=== PATIENT | male | born 1965 | race Hispanic/Latino ===

== ENCOUNTER 2016-08-24 03:50 | Emergency (ER) | payer MEDICARE ==
[2016-08-24 05:50] LABS: Basophils % (Auto) 1.2 % (0.0-1.8); Eosinophils % (Auto) 3.5 % (0.0-4.3); Hematocrit 43.8 % (35.5-45.6); Hemoglobin 14.5 gm/dl (11.8-15.2); Mean Corpuscular HGB Conc 33 % (32-34); Mean Corpuscular Hemoglobin 28 pg (28-32); Mean Corpuscular Volume 86 fl (84-94); Platelet Count 264 K/mm3 (140-440); Red Blood Count 5.11 M/mm3 (3.65-5.03); Red Cell Distribution Width 15.7 % (13.2-15.2); White Blood Count 8.2 K/mm3 (4.5-11.0)
[2016-08-24 06:08] LABS: BUN/Creatinine Ratio 10.83; Blood Urea Nitrogen 13 mg/dL (9-20); Calcium 9.1 mg/dL (8.4-10.2); Carbon Dioxide 27 mmol/L (22-30); Chloride 97.1 mmol/L (98-107); Glucose 172 mg/dL (75-100); Potassium 4.8 mmol/L (3.6-5.0); Sodium 135 mmol/L (137-145)
[2016-08-24 06:11] LABS: Anion Gap 16 mmol/L
--- NOTE | 2016-08-24 08:26 | XRay Report ---
Chest 2 views. Findings: The heart is enlarged with normal pulmonary vascularity. The lungs are clear. There is no pleural fluid. Impression: Cardiomegaly with no acute findings.
--- NOTE | 2016-08-24 09:56 | Emergency Department Report ---
Chief Complaint: Dyspnea/Respdistress Stated Complaint: DIFFICULTY IN BREATHING Time Seen by Provider: 08/24/16 09:55 - HPI History of Present Illness: Patient here complaining in shortness of breath that started yesterday. He said he has a history of congestive heart failure. He is complaining of abdominal denies any swelling to extremities. Denies any vomiting but reports nausea. Patient upper abdomen is 5 out of 10. - ROS Review of Systems: All systems are negative unless stated in HPI above - Exam Vital Signs: Vital Signs 08/24/16 05:18 Temperature 98.1 F Pulse Rate 103 H Respiratory 22 Rate Blood Pressure 158/114 O2 Sat by Pulse 99 Oximetry Physical Exam: General: This is a 50-year-old male that is nontoxic in appearance. Lungs: Increased work of breathing. Scattered crackles to lung bases CV: Tachycardia 103. Blood pressure 158/114, one, S2. MSE screening note: Focused history and physical exam performed. Due to findings the following was ordered:see [facility] ED Medical Decision Making - Lab Data Result diagrams: 08/24/16 05:36 08/24/16 05:36 - Radiology Data Radiology results: report reviewed Cardiomegaly with No acute cardiopulmonary processes per x-ray - Medical Decision Making Medical decision making: Patient seen by provider in triage area. Appropriate protocol activated and patient to main ED to be seen by physician. ED Disposition for MSE Condition: Stable
[2016-08-24 11:03] VITALS: BP 120/94
[2016-08-24] MEDS ORDERED: LASIX PO ONE (11:08)
[2016-08-24 11:52] LABS: Bilirubin,Urine NEG (Negative); Blood,Urine NEG (Negative); Ketones,Urine NEG (Negative); Leukocyte Esterase,Urine NEG (Negative); Mucus,Urine FEW /HPF; Nitrite,Urine NEG (Negative); Urobilinogen,Urine < 2.0 mg/dL (<2.0)
--- NOTE | 2016-08-24 13:04 | Emergency Department Report ---
HPI - General Chief Complaint: Dyspnea/Respdistress Time Seen by Provider: 08/24/16 09:55 - HPI HPI: The patient is a 50-year-old male with a significant history of congestive heart failure and hypertension, who presents for evaluation of dyspnea. The patient reports constant dyspnea for the past one week, moderate in severity, exacerbated with lying flat or physical activity, and improved with rest and sitting up. The patient denies fever, cough, CP, hemoptysis, unilateral leg swelling, recent immobilization, history of DVT or PE, recent cancer. He shares that he has been out of Lasix medication regimen for some time. ED Past Medical Hx - Past Medical History Hx Heart Attack/AMI: Yes (2002) Hx Congestive Heart Failure: Yes Hx Diabetes: Yes Hx Kidney Stones: Yes Hx Asthma: No Hx COPD: No Additional medical history: on transplant list, cardiomyopathy, neuropathy - Surgical History Additional Surgical History: left ankle surgery, left shoulder surgery, urinary stent, lithotripsy, left hand surgery, - Social History Smoking Status: Current Some Day Smoker Substance Use Type: Marijuana - Medications Home Medications: Home Medications Medication Instructions Recorded Confirmed Last Taken Type Aspirin [Aspirin TAB] 325 mg PO QDAY 05/02/13 05/02/13 05/02/13 11:00 History Atenolol [Tenormin] 50 mg PO DAILY 05/02/13 05/02/13 05/02/13 11:00 History metFORMIN [Glucophage] 1,000 mg PO BIDWM 05/02/13 05/02/13 05/02/13 11:00 History traMADol [Ultram 50 MG tab] 50 mg PO Q4HR PRN #14 tablet 05/03/13 Unknown Rx Amoxicillin/K Clav Tab [Augmentin 1 tab PO BID #28 tablet 10/02/14 Unknown Rx 875MG] Insulin Glargine [Lantus VIAL] 18 units SUB-Q QHS #1 vial 10/02/14 Unknown Rx Insulin Glulisine [Apidra] 8 units SUB-Q AC #1 vial 10/02/14 Unknown Rx Lisinopril/Hydrochlorothiazide 1 tab PO QDAY #30 tablet 10/02/14 Unknown Rx [Zestoretic 20-12.5 mg] Clindamycin [Clindamycin CAP] 300 mg PO Q6H #40 capsule 01/21/15 Unknown Rx HYDROcodone/APAP 5-325 [[place] 1 each PO Q6H PRN #20 tablet 01/21/15 Unknown Rx 5-325 mg TAB] Digoxin [Lanoxin] 0.125 mg PO DAILY #90 tablet 03/04/15 Unknown Rx Furosemide [Lasix TAB] 40 mg PO QDAY #30 tablet 08/24/16 Unknown Rx ED Review of Systems ROS: Stated complaint: DIFFICULTY IN BREATHING Other details as noted in HPI Constitutional: denies: fever ENT: denies: throat or neck pain Respiratory: reports shortness of breath Cardiovascular: denies: chest pain Endocrine: denies unexplained weight loss or gain Gastrointestinal: denies: abdominal pain, nausea Genitourinary: denies: dysuria Musculoskeletal: denies: leg swelling Skin: denies: rash Neurological: denies: headache Hematological/Lymphatic: denies: easy bleeding or easy bruising Psych: denies sadness or hopelessness Physical Exam - Physical Exam Vital Signs: Vital Signs 08/24/16 08/24/16 05:18 10:57 Temperature 98.1 F 98.0 F Pulse Rate 103 H 72 Respiratory 22 15 Rate Blood Pressure 158/114 Blood Pressure 120/94 [Right] O2 Sat by Pulse 99 96 Oximetry Physical Exam: General: well-nourished, well-developed, no acute distress Head: Normocephalic, atraumatic Eyes: normal sclera ENT: Mucous membranes are pink and moist Neck: trachea midline, neck supple, No neck stiffness, no cervical adenopathy Respiratory: Mildly diminished breath sounds and rales present bibasilar lung alvares, no costal retractions, no respiratory distress Cardio: S1 and S2 present, no murmurs, rubs, gallops, capillary refill is brisk Abdomen: Normoactive bowel sounds, soft abdomen, no rigidity, no guarding or rebound tenderness Musc: 1+ pitting edema of bilateral lower legs present Skin: No rash Neuro: no facial drooping, normal speech Psych: Normal affect ED Course Vital Signs 08/24/16 08/24/16 05:18 10:57 Temperature 98.1 F 98.0 F Pulse Rate 103 H 72 Respiratory 22 15 Rate Blood Pressure 158/114 Blood Pressure 120/94 [Right] O2 Sat by Pulse 99 96 Oximetry ED Medical Decision Making - Lab Data Result diagrams: 08/24/16 05:36 08/24/16 05:36 - Medical Decision Making The patient was seen and examined by myself. The patient is placed on a hall monitor and continuous pulse ox. On initial evaluation, the patient was found to be in no distress. Evaluation orders were placed. EKG is negative for findings concerning for acute ACS. Chest x-ray done shows cardiomegaly and minimal pulmonary vascular congestion, and is negative for pleural effusions or significant cardiogenic pulmonary edema. Lab results revealed elevated BNP of 2000. The patient given a tablet of Lasix.The patient was reevaluated and reported that their symptoms were markedly improved. The patient is stable for discharge with outpatient follow-up. The patient is given follow-up and return instructions. The patient expressed understanding and agreed with the plan. The patient is discharged in stable condition. Critical care attestation.: If time is entered above; I have spent that time in minutes in the direct care of this critically ill patient, excluding procedure time. ED Disposition Clinical Impression: Asymptomatic hypertensive urgency, Acute on chronic systolic CHF (congestive heart failure) Disposition: DISCHARGED TO HOME OR SELFCARE Is pt being admited?: No Does the pt Need Aspirin: No Condition: Stable Instructions: Chronic Hypertension (ED), Heart Failure (ED) Prescriptions: Furosemide [Lasix TAB] 40 mg PO QDAY #30 tablet Referrals: PRIMARY CARE, [Primary Care Provider] - 3-5 Days Time of Disposition: 12:39
== END 2016-08-24 13:16 | disposition home or self-care (01) ==
LOC: ED 03:50
DX: R06.00 Dyspnea, unspecified (principal); I50.23 Acute on chronic systolic (congestive) heart failure; I25.2 Old myocardial infarction; I10 Essential (primary) hypertension; E11.9 Type 2 diabetes mellitus without complications; I42.9 Cardiomyopathy, unspecified; F17.200 Nicotine dependence, unspecified, uncomplicated; F12.10 Cannabis abuse, uncomplicated
CPT/HCPCS: 36415; 71020; 80048; 81001; 83880; 84484; 85025; 93005; 93010; 99284

== ENCOUNTER 2016-10-13 03:58 | Inpatient (IN) | payer MEDICARE ==
[2016-10-13 04:51] LABS: BUN/Creatinine Ratio 11.53; Calcium 8.8 mg/dL (8.4-10.2); Chloride 92.1 mmol/L (98-107); Potassium 4.2 mmol/L (3.6-5.0)
[2016-10-13 05:11] LABS: Basophils % (Auto) 1.5 % (0.0-1.8); Eosinophils % (Auto) 1.8 % (0.0-4.3); Hematocrit 44.2 % (35.5-45.6); Hemoglobin 14.2 gm/dl (11.8-15.2); Mean Corpuscular HGB Conc 32 % (32-34); Mean Corpuscular Hemoglobin 27 pg (28-32); Mean Corpuscular Volume 85 fl (84-94); Platelet Count 241 K/mm3 (140-440); Red Blood Count 5.22 M/mm3 (3.65-5.03); Red Cell Distribution Width 17.1 % (13.2-15.2); White Blood Count 7.6 K/mm3 (4.5-11.0)
[2016-10-13] MEDS ORDERED: LASIX IV ONE (06:56)
--- NOTE | 2016-10-13 07:01 | Emergency Department Report ---
HPI - General Chief Complaint: Dyspnea/Respdistress Time Seen by Provider: 10/13/16 06:48 - HPI HPI: Room 5 The patient is a 50-year-old male presenting with a chief complaint of shortness of breath. The patient states for 1 week his had worsening shortness of breath. The patient states she's been compliant with Lasix but it has not helped. Patient admits to orthopnea and states for the past several days he has had to sleep sitting up. Patient denies chest pain or fever but admits to a cough that is occasionally productive. The patient had not noticed lower extremity edema until I examined him today Location: Lungs, cardiovascular system Duration: One week Quality: Shortness of breath Severity: Moderate Modifying factors: [see above] Context: [see above] Mode of transportation: Unknown ED Past Medical Hx - Past Medical History Previous Medical History?: Yes Hx Heart Attack/AMI: Yes (2002) Hx Congestive Heart Failure: Yes Hx Diabetes: Yes Hx Kidney Stones: Yes Additional medical history: on transplant list, cardiomyopathy, neuropathy - Surgical History Past Surgical History?: Yes Additional Surgical History: left ankle surgery, left shoulder surgery, urinary stent, lithotripsy, left hand surgery, - Family History Family history: no significant - Social History Smoking Status: Never Smoker Substance Use Type: Marijuana - Medications Home Medications: Home Medications Medication Instructions Recorded Confirmed Last Taken Type Aspirin [Aspirin TAB] 325 mg PO QDAY 05/02/13 05/02/13 05/02/13 11:00 History Atenolol [Tenormin] 50 mg PO DAILY 05/02/13 05/02/13 05/02/13 11:00 History metFORMIN [Glucophage] 1,000 mg PO BIDWM 05/02/13 05/02/13 05/02/13 11:00 History traMADol [Ultram 50 MG tab] 50 mg PO Q4HR PRN #14 tablet 05/03/13 Unknown Rx Amoxicillin/K Clav Tab [Augmentin 1 tab PO BID #28 tablet 10/02/14 Unknown Rx 875MG] Insulin Glargine [Lantus VIAL] 18 units SUB-Q QHS #1 vial 10/02/14 Unknown Rx Insulin Glulisine [Apidra] 8 units SUB-Q AC #1 vial 10/02/14 Unknown Rx Lisinopril/Hydrochlorothiazide 1 tab PO QDAY #30 tablet 10/02/14 Unknown Rx [Zestoretic 20-12.5 mg] Clindamycin [Clindamycin CAP] 300 mg PO Q6H #40 capsule 01/21/15 Unknown Rx HYDROcodone/APAP 5-325 [[place] 1 each PO Q6H PRN #20 tablet 01/21/15 Unknown Rx 5-325 mg TAB] Digoxin [Lanoxin] 0.125 mg PO DAILY #90 tablet 03/04/15 Unknown Rx Furosemide [Lasix TAB] 40 mg PO QDAY #30 tablet 08/24/16 Unknown Rx ED Review of Systems ROS: Stated complaint: DIFFICULTY IN BREATHING Other details as noted in HPI Comment: All other systems reviewed and negative Constitutional: denies: chills, fever Eyes: denies: eye pain, eye discharge, vision change Respiratory: cough, orthopnea, shortness of breath, SOB with exertion Cardiovascular: denies: chest pain, palpitations Endocrine: no symptoms reported Gastrointestinal: denies: abdominal pain, nausea, diarrhea Genitourinary: denies: urgency, dysuria Musculoskeletal: denies: back pain, joint swelling, arthralgia Skin: denies: rash, lesions Neurological: denies: headache, weakness, paresthesias Psychiatric: denies: anxiety, depression Hematological/Lymphatic: denies: easy bleeding, easy bruising Physical Exam - Physical Exam Vital Signs: Vital Signs 10/13/16 04:05 Temperature 97.5 F L Pulse Rate 105 H Respiratory 26 H Rate Blood Pressure 179/108 Physical Exam: GENERAL: The patient is well-developed well-nourished male lying on stretcher not appearing to be in acute distress. [] HEENT: Normocephalic. Atraumatic. Extraocular motions are intact. Patient has moist mucous membranes. NECK: Supple. Trachea midline CHEST/LUNGS: Clear to auscultation. There is no respiratory distress noted. HEART/CARDIOVASCULAR: Regular. There is no tachycardia. There is no gallop rub or murmur. There is hepatojugular reflux ABDOMEN: Abdomen is soft, nontender. Patient has normal bowel sounds. There is no abdominal distention. SKIN: There is no rash. There is 1+ bilateral lower extremity pitting edema. There is no diaphoresis. NEURO: The patient is awake, alert, and oriented. The patient is cooperative. The patient has normal speech MUSCULOSKELETAL: There is no evidence of acute injury. ED Course Vital Signs 10/13/16 04:05 Temperature 97.5 F L Pulse Rate 105 H Respiratory 26 H Rate Blood Pressure 179/108 ED Medical Decision Making - Lab Data Result diagrams: 10/13/16 04:17 10/13/16 04:17 Laboratory Tests 10/13/16 10/13/16 04:17 04:17 WBC 7.6 RBC 5.22 H Hgb 14.2 Hct 44.2 MCV 85 MCH 27 L MCHC 32 RDW 17.1 H Plt Count 241 Lymph % (Auto) 27.9 [place] % (Auto) 9.5 H Eos % (Auto) 1.8 Baso % (Auto) 1.5 Lymph # 2.1 [place] # 0.7 Eos # 0.1 Baso # 0.1 Seg Neutrophils % 59.3 Seg Neutrophils # 4.5 Sodium 135 L Potassium 4.2 Chloride 92.1 L Carbon Dioxide 27 Anion Gap 20 BUN 15 Creatinine 1.3 Estimated GFR 58 BUN/Creatinine Ratio 11.53 Glucose 246 H Calcium 8.8 Troponin T 0.022 NT-Pro-B Natriuret Pep 4440 H - EKG Data -: EKG Interpreted by Me EKG shows normal: sinus rhythm Rate: tachycardia (103 bpm) - EKG Data When compared to previous EKG there are: no significant change Interpretation: unchanged when compared t (08/24/2016) - Radiology Data Radiology results: image reviewed (chest x-ray) interpreted by me: Chest [id number] interstitial markings, cephalization/CHF - Differential Diagnosis CHF exacerbation, ACS, pneumonia Critical care attestation.: If time is entered above; I have spent that time in minutes in the direct care of this critically ill patient, excluding procedure time. ED Disposition Clinical Impression: Shortness of breath, CHF exacerbation, Orthopnea, Bilateral lower extremity edema Disposition: OP ADMITTED IP TO THIS HOSP Is pt being admited?: Yes Does the pt Need Aspirin: Yes Condition: Fair Referrals: PRIMARY CARE, [Primary Care Provider] - 3-5 Days Time of Disposition: 07:02 (hospitalist paged)
[2016-10-13] MEDS ORDERED: ASPIRIN PO ONE (07:02)
--- NOTE | 2016-10-13 07:27 | Admit Criteria Form ---
Admission Criteria Documentation: HEART FAILURE: COMMON COMPLICATIONS Clinical Indications for Inpatient Care (Place 'X' for any and all applicable criteria): Ongoing inpatient care may be indicated for heart failure with ANY ONE of the following (1)(2)(3)(4)(5): [ ]I. Ongoing need for care for primary condition requiring frequent therapy adjustments because of changes in cardiac function (eg, drug dosage changes for drugs that are renally metabolized) [ ]II. New-onset heart failure [ ]III. Heart failure with decreased urine output not responsive to attempts to optimize volume status [ ]IV. Acute cardiac ischemia causing or associated with failure [ X]V. Complications of heart failure, including ANY ONE of the following: [ ]a) Pericardial effusion [ ]b) Symptomatic pleural effusion [ ]c) O2 saturation <90% or PO2 < 60 mm Hg (8.0 kPa) on room air or require baseline supplemental O2 [ ]d) Tachypnea [X ]e) Dyspnea [ ]f) Syncope [ ]g) Change in mental status [ ]h) Acute renal insufficiency that is severe (reduction of more than 50% in estimated glomerular filtration rate from baseline) or progressive reduction of more than 25% in estimated glomerular filtration rate from baseline, with creatinine continuing to rise) [ ]i) Hemodynamic instability [ ]j) Anasarca [ ]k) Clinically significant metabolic abnormalities due to heart failure (eg, new-onset metabolic acidosis) Extended stay beyond goal length of stay for primary condition may be needed until ALL of the following are present(1)(3): [ ]a) Stable and effective diuretic regimen established (or patient on stable dialysis regimen if in chronic renal failure) [ ]b) Breathing comfortably at rest [ ]c) Saturation of arterial oxygen greater than 90% or at acceptable baseline [ ]d) Pulmonary edema absent or improved [ ]e) Hemodynamic stability [ ]f) Volume status acceptable on oral medication [ ]g) Peripheral or sacral edema absent or improved [ ]h) Renal function stable and manageable at a lower level of care [ ]i) Complications (eg, pleural effusion) resolved or manageable at a lower level of care [ ]j) Patient or caregiver has received written discharge instructions or educational material addressing activity level, diet, discharge medications, follow-up appointment, weight monitoring, and what to do if symptoms worsen The original [facility] content created by [employer] has been revised. The portions of the content which have been revised are identified through the use of italic text or in bold, and [facility] has neither reviewed nor approved the modified material.All other unmodified content is copyright [facility]. Please see references footnoted in the original [facility] edition 2016 Admission Criteria Met: Yes
--- NOTE | 2016-10-13 08:46 | History and Physical Report ---
History of Present Illness Date of examination: 10/13/16 Date of admission: 10/13/16 07:07 History of present illness: The patient is a 50-year-old male presenting with a chief complaint of shortness of breath. The patient states for 1 week his had worsening shortness of breath. The patient states she's been compliant with Lasix but it has not helped. Patient admits to orthopnea and states for the past several days he has had to sleep sitting up. Patient denies chest pain or fever but admits to a cough that is occasionally productive. The patient had not noticed lower extremity edema until I examined him today Past History Past Medical History: CAD, diabetes, heart failure, hyperlipidemia Medications and Allergies Allergies Allergy/AdvReac Type Severity Reaction Status Date / Time Sulfa (Sulfonamide Allergy Unknown Verified 01/21/15 07:37 Antibiotics) Home Medications Medication Instructions Recorded Confirmed Last Taken Type Digoxin [Lanoxin] 0.125 mg PO DAILY #90 tablet 03/04/15 10/13/16 Unknown Rx Furosemide [Lasix TAB] 40 mg PO QDAY #30 tablet 08/24/16 10/13/16 Unknown Rx Aspirin 81 mg PO DAILY 10/13/16 10/13/16 Unknown History AtorvaSTATin [Lipitor] 80 mg PO DAILY 10/13/16 10/13/16 Unknown History Lisinopril [Zestril TAB] 20 mg PO DAILY 10/13/16 10/13/16 Unknown History Metoprolol [Lopressor TAB] 50 mg PO DAILY 10/13/16 10/13/16 Unknown History Review of Systems Cardiovascular: edema, shortness of breath, paroxysmal nocturnal dyspnea Exam - Constitutional Vitals: Temp Pulse Resp BP Pulse Ox 97.5 F L 101 H 16 145/91 98 10/13/16 04:05 10/13/16 08:25 10/13/16 08:27 10/13/16 08:25 10/13/16 08:27 General appearance: Present: mild distress - EENT Eyes: Present: PERRL, EOM intact ENT: hearing intact, clear oral mucosa - Neck Neck: Present: supple, normal ROM - Respiratory Respiratory effort: normal Respiratory: bilateral: rales - Cardiovascular Rhythm: regular Heart Sounds: Present: S1 & S2 - Extremities Extremities: no ischemia Extremity abnormal: edema - Abdominal General gastrointestinal: Present: soft, non-tender, non-distended, normal bowel sounds - Musculoskeletal Musculoskeletal: strength equal bilaterally - Psychiatric Psychiatric: appropriate mood/affect, intact judgment & insight - Neurologic Neurologic: CNII-XII intact, moves all extremities Results - Labs CBC & Chem 7: 10/13/16 04:17 10/13/16 04:17 Labs: Laboratory Last Values WBC 7.6 K/mm3 (4.5-11.0) 10/13/16 04:17 RBC 5.22 M/mm3 (3.65-5.03) H 10/13/16 04:17 Hgb 14.2 gm/dl (11.8-15.2) 10/13/16 04:17 Hct 44.2 % (35.5-45.6) 10/13/16 04:17 MCV 85 fl (84-94) 10/13/16 04:17 MCH 27 pg (28-32) L 10/13/16 04:17 MCHC 32 % (32-34) 10/13/16 04:17 RDW 17.1 % (13.2-15.2) H 10/13/16 04:17 Plt Count 241 K/mm3 (140-440) 10/13/16 04:17 Lymph % (Auto) 27.9 % (13.4-35.0) 10/13/16 04:17 [place] % (Auto) 9.5 % (0.0-7.3) H 10/13/16 04:17 Eos % (Auto) 1.8 % (0.0-4.3) 10/13/16 04:17 Baso % (Auto) 1.5 % (0.0-1.8) 10/13/16 04:17 Lymph # 2.1 K/mm3 (1.2-5.4) 10/13/16 04:17 [place] # 0.7 K/mm3 (0.0-0.8) 10/13/16 04:17 Eos # 0.1 K/mm3 (0.0-0.4) 10/13/16 04:17 Baso # 0.1 K/mm3 (0.0-0.1) 10/13/16 04:17 Seg Neutrophils % 59.3 % (40.0-70.0) 10/13/16 04:17 Seg Neutrophils # 4.5 K/mm3 (1.8-7.7) 10/13/16 04:17 Sodium 135 mmol/L (137-145) L 10/13/16 04:17 Potassium 4.2 mmol/L (3.6-5.0) 10/13/16 04:17 Chloride 92.1 mmol/L (98-107) L 10/13/16 04:17 Carbon Dioxide 27 mmol/L (22-30) 10/13/16 04:17 Anion Gap 20 mmol/L 10/13/16 04:17 BUN 15 mg/dL (9-20) 10/13/16 04:17 Creatinine 1.3 mg/dL (0.8-1.5) 10/13/16 04:17 Estimated GFR 58 ml/min 10/13/16 04:17 BUN/Creatinine Ratio 11.53 % 10/13/16 04:17 Glucose 246 mg/dL (75-100) H 10/13/16 04:17 Calcium 8.8 mg/dL (8.4-10.2) 10/13/16 04:17 Troponin T 0.022 ng/mL (0.00-0.029) 10/13/16 04:17 NT-Pro-B Natriuret Pep 4440 pg/mL (0-900) H 10/13/16 04:17 Assessment and Plan - Patient Problems (1) Diabetes mellitus Current Visit: Yes Status: Acute Qualifiers: Diabetes mellitus type: D Diabetes mellitus complication status: D Diabetes mellitus complication detail: D Diabetic retinopathy severity: D Proliferative retinopathy type: P Diabetes mellitus macular edema: D Diabetes mellitus [facility] insulin use: D Laterality: L Chronic kidney disease stage: C Plan to address problem: Accu-Cheks, sliding scale insulin, follow hemoglobin A1c (2) Coronary artery disease Current Visit: Yes Status: Acute Qualifiers: Coronary Disease-Associated Artery/Lesion type: C [place] vs. transplanted heart: N Associated angina: A Plan to address problem: We'll get cardiology consult, follow troponins (3) CHF exacerbation Current Visit: Yes Status: Acute Qualifiers: Congestive heart failure type: C Plan to address problem: Patient has been lost to follow-up with [facility]. We'll consult medical director/head team physician. We'll get 2-D echo. We'll follow troponins. We'll start IV Lasix DAMARIS inhibitor, carvedilol
[2016-10-13] MEDS ORDERED: COREG PO SCH ×3 (10:00→13:00)
[2016-10-13] MEDS: ZESTRIL PO SCH (10:36)
[2016-10-13] MEDS: LANOXIN PO SCH (10:37)
--- NOTE | 2016-10-13 11:09 | XRay Report ---
CHEST 2 VIEWS INDICATION: Shortness of breath. COMPARISON: 08/24/2016 FINDINGS: Frontal and lateral chest radiographs, 3 images demonstrate increased lung markings centrally, slightly greater fluid/thickening along the fissures and possible subtle right pleural effusion. Mild cardiomegaly again suspected. Stable bones with slight mid thoracic kyphosis, multilevel degenerative spurring and single left shoulder screw. CONCLUSION: New mild pulmonary vascular congestion suspected developing with stable cardiomegaly and few other findings, as above. Please correlate. Thank you for the opportunity to participate in this patient's care.
--- NOTE | 2016-10-13 11:29 | Consultation ---
History of Present Illness Consult date: 10/13/16 Requesting physician: ANA HARRY Consult reason: congestive heart failure History of present illness: The patient is a 50 year old male with a history of hypertension, diabetes, hyperlipidemia who presented with complaints of worsening shortness of breath, dyspnea on exertion and orthopnea over the past one week. He denies any chest pain, palpitations, nausea, vomiting or diaphoresis. Troponin level is mildly elevated, 0.002, 0.034. BNP 4440. CXR shows vascular congestion. He reports a history of "cardiomyopathy" however echo done in 2011 revealed LVH, normal LV function and diastolic dysfunction. Stress test in 2012 revealed a fixed inferior defect, EF 47%. Past History Past Medical History: diabetes, heart failure, hypertension, hyperlipidemia Past Surgical History: Other (left ankle surgery, left shoulder surgery, urinary stent, lithotripsy, left hand surgery) Social history: , lives with family, other (occasional marijuana use). denies: smoking, alcohol abuse, prescription drug abuse Family history: no significant family history Medications and Allergies Allergies Allergy/AdvReac Type Severity Reaction Status Date / Time Sulfa (Sulfonamide Allergy Unknown Verified 01/21/15 07:37 Antibiotics) Home Medications Medication Instructions Recorded Confirmed Last Taken Type Digoxin [Lanoxin] 0.125 mg PO DAILY #90 tablet 03/04/15 10/13/16 Unknown Rx Furosemide [Lasix TAB] 40 mg PO QDAY #30 tablet 08/24/16 10/13/16 Unknown Rx Aspirin 81 mg PO DAILY 10/13/16 10/13/16 Unknown History AtorvaSTATin [Lipitor] 80 mg PO DAILY 10/13/16 10/13/16 Unknown History Lisinopril [Zestril TAB] 20 mg PO DAILY 10/13/16 10/13/16 Unknown History Metoprolol [Lopressor TAB] 50 mg PO DAILY 10/13/16 10/13/16 Unknown History Active Meds: Active Medications Aspirin (Baby Aspirin) 81 mg PO DAILY [facility] Atorvastatin Calcium (Lipitor) 80 mg PO DAILY [facility] Last Admin: 10/13/16 10:36 Dose: 80 mg Carvedilol (Coreg) 6.25 mg PO BID [facility] Last Admin: 10/13/16 10:37 Dose: 6.25 mg Digoxin (Lanoxin) 0.125 mg PO DAILY [facility] Last Admin: 10/13/16 10:37 Dose: 0.125 mg Furosemide (Lasix) 40 mg IV 0600,1800 [facility] Lisinopril (Zestril) 20 mg PO QDAY [facility] Last Admin: 10/13/16 10:36 Dose: 20 mg Review of Systems Constitutional: no fever, no chills Ears, nose, mouth and throat: no nasal congestion, no nasal discharge, no sinus pressure Cardiovascular: orthopnea, shortness of breath, dyspnea on exertion, leg edema, no chest pain Respiratory: cough, shortness of breath, dyspnea on exertion Gastrointestinal: no abdominal pain, no nausea, no vomiting, no diarrhea Genitourinary Male: no dysuria, no hematuria Musculoskeletal: no neck stiffness, no neck pain, no myalgias Integumentary: no rash, no pruritis Neurological: no parathesias, no numbness, no tingling, no headaches Endocrine: no cold intolerance, no heat intolerance Hematologic/Lymphatic: no easy bruising, no easy bleeding Allergic/Immunologic: no urticaria, no wheezing Physical Examination Vital Signs Temp Pulse Resp BP 97.5 F L 105 H 26 H 179/108 10/13/16 04:05 10/13/16 04:05 10/13/16 04:05 10/13/16 04:05 General appearance: no acute distress, obese HEENT: Positive: PERRL, Normocephaly, Mucus Membranes Moist Neck: Positive: neck supple, trachea midline Cardiac: Positive: Reg Rate and Rhythm, S1/S2 Lungs: Positive: Decreased Breath Sounds (bilateral bases) Neuro: Positive: Grossly Intact Abdomen: Positive: Soft, Active Bowel Sounds. Negative: Tender Skin: Positive: Clear. Negative: Rash Extremities: Present: edema (trace-bilateral lower legs) Results 10/13/16 04:17 10/13/16 04:17 Lipids 10/13/16 Range/Units 08:57 Triglycerides 214 H (2-149) mg/dL Cholesterol 195 (50-199) mg/dL HDL Cholesterol 38 L (40-59) mg/dL Cholesterol/HDL Ratio 5.13 % - Imaging and Cardiology Echo: pending EKG: image reviewed EKG interpretations - Telemetry EKG Rhythm: Sinus Rhythm - EKG Sinus rhythms and dysrhythmias: sinus tachycardia Assessment and Plan Acute heart failure normal LV function in 2009, await repeat echo findings continue IV lasix continue coreg, lisinopril Elevated troponin-->may be due to decompensated heart failure no chest pain no EKG changes consider stress test when SOB improved Hypertension Diabetes Hyperlipidemia continue statin Agree with current regimen. Await echo findings. The patient has been seen in conjunction with Dr. Fonseca who agrees with the assessment and plan of care. Thank you Dr. Harry for allowing us to participate in the care of this patient.
[2016-10-13] MEDS: LASIX IV SCH (17:41)
[2016-10-13] MEDS: NOVOLOG SUB-Q SCH ×2 (17:42→22:21)
[2016-10-13] MEDS: COREG PO SCH (22:20)
[2016-10-14 03:46] LABS: Basophils % (Auto) 1.1 % (0.0-1.8); Hematocrit 42.9 % (35.5-45.6); Mean Corpuscular HGB Conc 33 % (32-34); Mean Corpuscular Hemoglobin 28 pg (28-32); Mean Corpuscular Volume 85 fl (84-94); Platelet Count 224 K/mm3 (140-440); Red Blood Count 5.07 M/mm3 (3.65-5.03); Red Cell Distribution Width 17.2 % (13.2-15.2); White Blood Count 8.5 K/mm3 (4.5-11.0)
[2016-10-14 03:59] LABS: Alanine Aminotransferase 25 units/L (7-56); Albumin 3.3 g/dL (3.9-5); Alkaline Phosphatase 106 units/L (35-129); Anion Gap 19 mmol/L; BUN/Creatinine Ratio 18.18; Bilirubin,Total 0.6 mg/dL (0.1-1.2); Blood Urea Nitrogen 20 mg/dL (9-20); Carbon Dioxide 26 mmol/L (22-30); Glucose 163 mg/dL (75-100); Potassium 4.3 mmol/L (3.6-5.0); Sodium 137 mmol/L (137-145); Total Protein 6.6 g/dL (6.3-8.2)
[2016-10-14] MEDS: LASIX IV SCH ×2 (05:19→17:24)
[2016-10-14] MEDS: NOVOLOG SUB-Q SCH ×5 (08:49→22:13)
[2016-10-14] MEDS: ZESTRIL PO SCH (11:01)
[2016-10-14] MEDS: COREG PO SCH ×2 (11:03→22:13)
[2016-10-14] MEDS: BABY ASPIRIN PO SCH (11:04)
[2016-10-14] MEDS: LANOXIN PO SCH (11:04)
--- NOTE | 2016-10-14 11:17 | Progress Note ---
Assessment and Plan Acute/chronic systolic heart failure normal LV function in 2009, tte yesterday reveals ef 20-25% continue IV lasix continue coreg, lisinopril Elevated troponin-->may be due to decompensated heart failure no chest pain no EKG changes consider stress test when SOB improved Hypertension Diabetes Hyperlipidemia continue statin [facility] sunday risks, benefits, alternatives d/w pt and at length they'd like to proceed Subjective Date of service: 10/14/16 Interval history: sob improved no cp Objective Vital Signs Temp Pulse Pulse Resp BP BP Pulse Ox 10/14/16 11:04 91 H 112/60 10/14/16 11:03 91 H 112/60 10/14/16 11:01 91 H 112/60 10/14/16 09:43 99 10/14/16 05:00 97.6 F 82 19 100/69 99 10/14/16 01:00 85 10/14/16 00:00 98 F 84 20 108/75 98 10/13/16 22:20 92 H 119/71 10/13/16 21:00 100 10/13/16 18:04 98.5 F 95 H 20 118/78 97 10/13/16 13:17 97.7 F 68 18 144/82 100 - Physical Examination HEENT: Positive: PERRL, Normocephaly, Mucus Membranes Moist Neck: Positive: neck supple, trachea midline Neuro: Positive: Grossly Intact Abdomen: Positive: Soft, Active Bowel Sounds. Negative: Tender Skin: Positive: Clear. Negative: Rash Extremities: Present: edema (trace-bilateral lower legs) - Labs and Meds Cardiac Enzymes 10/14/16 Range/Units 03:05 AST 23 (5-40) units/L CBC 10/14/16 Range/Units 03:05 WBC 8.5 (4.5-11.0) K/mm3 RBC 5.07 H (3.65-5.03) M/mm3 Hgb 14.0 (11.8-15.2) gm/dl Hct 42.9 (35.5-45.6) % Plt Count 224 (140-440) K/mm3 Lymph # 2.2 (1.2-5.4) K/mm3 Wise # 0.7 (0.0-0.8) K/mm3 Eos # 0.3 (0.0-0.4) K/mm3 Baso # 0.1 (0.0-0.1) K/mm3 Comprehensive Metabolic Panel 10/14/16 Range/Units 03:05 Sodium 137 (137-145) mmol/L Potassium 4.3 (3.6-5.0) mmol/L Chloride 96.0 L (98-107) mmol/L Carbon Dioxide 26 (22-30) mmol/L BUN 20 (9-20) mg/dL Creatinine 1.1 (0.8-1.5) mg/dL Glucose 163 H (75-100) mg/dL Calcium 9.0 (8.4-10.2) mg/dL AST 23 (5-40) units/L ALT 25 (7-56) units/L Alkaline Phosphatase 106 (35-129) units/L Total Protein 6.6 (6.3-8.2) g/dL Albumin 3.3 L (3.9-5) g/dL - Imaging and Cardiology EKG: image reviewed Echo: pending - EKG Sinus rhythms and dysrhythmias: sinus tachycardia
--- NOTE | 2016-10-14 13:49 | Progress Note ---
Assessment and Plan Assessment and plan: Acute on chronic systolic heart failure * continue IV lasix, continue coreg, lisinopril, digoxin * had normal LV function in 2009, stress test on 2011 showed Ef of 47% * 2d echo yesterday reveals EF of 20-25% * plan for cardiac cath on Sunday Elevated troponin * may be due to decompensated heart failure * Pt has no chest pain, no EKG changes Hypertension * continue coreg, lisinopril, lasix Diabetes type 2 * BG check qachs with SSI, ADA diet Hyperlipidemia * continue statin History Interval history: Patient seen and examined. Medical records and medication list reviewed. No acute event overnight noted by the RN. Patient denies any chest pain or difficulty breathing. Patient is tolerating diet. Discussed plan of care at bedside with patient. Hospitalist Physical - Physical exam Narrative exam: GENERAL: well-developed and well-nourished white male lying on bed appeared to be in no discomfort. HEENT: Normocephalic. Atraumatic. No conjunctival congestion or icterus. Patient has moist mucous membranes. NECK: Supple. Trachea midline. CHEST/LUNGS: Clear to auscultated bilaterally, breathing nonlabored. No wheezes crackles or rhonchi. HEART/CARDIOVASCULAR: Regular in rate and rhythm. S1 and S2 positive. ABDOMEN: Abdomen is soft, nontender. Patient has normal bowel sounds. SKIN: There is no rash. Warm and dry. NEURO: No focal motor deficit. Follows command. MUSCULOSKELETAL: No joint effusion or tenderness. EXTRIMITY: No edema, no cyanosis or clubbing. PSYCH: Cooperative. - Constitutional Vitals: Temp Pulse Resp BP Pulse Ox 98.4 F 91 H 20 112/60 99 10/14/16 08:50 10/14/16 11:04 10/14/16 08:50 10/14/16 11:04 10/14/16 09:43 General appearance: Present: no acute distress, obese Results - Labs CBC & Chem 7: 10/14/16 03:05 10/14/16 03:05 Labs: Laboratory Last Values WBC 8.5 K/mm3 (4.5-11.0) 10/14/16 03:05 RBC 5.07 M/mm3 (3.65-5.03) H 10/14/16 03:05 Hgb 14.0 gm/dl (11.8-15.2) 10/14/16 03:05 Hct 42.9 % (35.5-45.6) 10/14/16 03:05 MCV 85 fl (84-94) 10/14/16 03:05 MCH 28 pg (28-32) 10/14/16 03:05 MCHC 33 % (32-34) 10/14/16 03:05 RDW 17.2 % (13.2-15.2) H 10/14/16 03:05 Plt Count 224 K/mm3 (140-440) 10/14/16 03:05 Lymph % (Auto) 25.9 % (13.4-35.0) 10/14/16 03:05 [place] % (Auto) 8.7 % (0.0-7.3) H 10/14/16 03:05 Eos % (Auto) 3.0 % (0.0-4.3) 10/14/16 03:05 Baso % (Auto) 1.1 % (0.0-1.8) 10/14/16 03:05 Lymph # 2.2 K/mm3 (1.2-5.4) 10/14/16 03:05 [place] # 0.7 K/mm3 (0.0-0.8) 10/14/16 03:05 Eos # 0.3 K/mm3 (0.0-0.4) 10/14/16 03:05 Baso # 0.1 K/mm3 (0.0-0.1) 10/14/16 03:05 Seg Neutrophils % 61.3 % (40.0-70.0) 10/14/16 03:05 Seg Neutrophils # 5.2 K/mm3 (1.8-7.7) 10/14/16 03:05 Sodium 137 mmol/L (137-145) 10/14/16 03:05 Potassium 4.3 mmol/L (3.6-5.0) 10/14/16 03:05 Chloride 96.0 mmol/L (98-107) L 10/14/16 03:05 Carbon Dioxide 26 mmol/L (22-30) 10/14/16 03:05 Anion Gap 19 mmol/L 10/14/16 03:05 BUN 20 mg/dL (9-20) 10/14/16 03:05 Creatinine 1.1 mg/dL (0.8-1.5) 10/14/16 03:05 Estimated GFR > 60 ml/min 10/14/16 03:05 BUN/Creatinine Ratio 18.18 % 10/14/16 03:05 Glucose 163 mg/dL (75-100) H 10/14/16 03:05 POC Glucose 156 (70-105) H 10/14/16 07:47 Calcium 9.0 mg/dL (8.4-10.2) 10/14/16 03:05 Total Bilirubin 0.6 mg/dL (0.1-1.2) 10/14/16 03:05 AST 23 units/L (5-40) 10/14/16 03:05 ALT 25 units/L (7-56) 10/14/16 03:05 Alkaline Phosphatase 106 units/L (35-129) 10/14/16 03:05 Troponin T 0.034 ng/mL (0.00-0.029) H D 10/13/16 08:57 NT-Pro-B Natriuret Pep 4440 pg/mL (0-900) H 10/13/16 04:17 Total Protein 6.6 g/dL (6.3-8.2) 10/14/16 03:05 Albumin 3.3 g/dL (3.9-5) L 10/14/16 03:05 Albumin/Globulin Ratio 1.0 % 10/14/16 03:05 Triglycerides 214 mg/dL (2-149) H 10/13/16 08:57 Cholesterol 195 mg/dL (50-199) 10/13/16 08:57 LDL Cholesterol Direct 115 mg/dL (50-130) 10/13/16 08:57 HDL Cholesterol 38 mg/dL (40-59) L 10/13/16 08:57 Cholesterol/HDL Ratio 5.13 % 10/13/16 08:57 Digoxin 0.9 ng/mL (0.9-2.0) 10/13/16 07:05
[2016-10-14] MEDS ORDERED: ZOFRAN IV PRN (23:52)
[2016-10-15] MEDS: LASIX IV SCH ×2 (06:19→18:42)
[2016-10-15] MEDS: NOVOLOG SUB-Q SCH ×4 (08:22→21:10)
--- NOTE | 2016-10-15 09:58 | Progress Note ---
Assessment and Plan Assessment and plan: Acute on chronic systolic heart failure * continue IV lasix, continue coreg, lisinopril, digoxin * had normal LV function in 2009, stress test on 2011 showed Ef of 47% * 2d echo yesterday reveals EF of 20-25% * plan for cardiac cath on Sunday Elevated troponin * may be due to decompensated heart failure * Pt has no chest pain, no EKG changes Hypertension * continue coreg, lisinopril, lasix Diabetes type 2 * BG check qachs with SSI, ADA diet Hyperlipidemia * continue statin Remote h/o cocaine abuse Tobacco abuse, counselled History Interval history: Patient seen and examined. Medical records and medication list reviewed. No acute event overnight noted by the RN. Patient denies any chest pain or difficulty breathing. Patient is tolerating diet. admits drug abuse with cocaine on early age but quit long time ago Discussed plan of care at bedside with patient. Hospitalist Physical - Physical exam Narrative exam: GENERAL: well-developed and well-nourished white male lying on bed appeared to be in no discomfort. HEENT: Normocephalic. Atraumatic. No conjunctival congestion or icterus. Patient has moist mucous membranes. NECK: Supple. Trachea midline. CHEST/LUNGS: Clear to auscultated bilaterally, breathing nonlabored. No wheezes crackles or rhonchi. HEART/CARDIOVASCULAR: Regular in rate and rhythm. S1 and S2 positive. ABDOMEN: Abdomen is soft, nontender. Patient has normal bowel sounds. SKIN: There is no rash. Warm and dry. NEURO: No focal motor deficit. Follows command. MUSCULOSKELETAL: No joint effusion or tenderness. EXTRIMITY: No edema, no cyanosis or clubbing. PSYCH: Cooperative. - Constitutional Vitals: Temp Pulse Resp BP Pulse Ox 98.0 F 82 18 106/71 98 10/15/16 07:52 10/15/16 07:52 10/15/16 07:52 10/15/16 07:52 10/15/16 07:52 General appearance: Present: no acute distress, obese Results - Labs CBC & Chem 7: 10/14/16 03:05 10/15/16 11:58 Labs: Laboratory Last Values WBC 8.5 K/mm3 (4.5-11.0) 10/14/16 03:05 RBC 5.07 M/mm3 (3.65-5.03) H 10/14/16 03:05 Hgb 14.0 gm/dl (11.8-15.2) 10/14/16 03:05 Hct 42.9 % (35.5-45.6) 10/14/16 03:05 MCV 85 fl (84-94) 10/14/16 03:05 MCH 28 pg (28-32) 10/14/16 03:05 MCHC 33 % (32-34) 10/14/16 03:05 RDW 17.2 % (13.2-15.2) H 10/14/16 03:05 Plt Count 224 K/mm3 (140-440) 10/14/16 03:05 Lymph % (Auto) 25.9 % (13.4-35.0) 10/14/16 03:05 [place] % (Auto) 8.7 % (0.0-7.3) H 10/14/16 03:05 Eos % (Auto) 3.0 % (0.0-4.3) 10/14/16 03:05 Baso % (Auto) 1.1 % (0.0-1.8) 10/14/16 03:05 Lymph # 2.2 K/mm3 (1.2-5.4) 10/14/16 03:05 [place]yler # 0.7 K/mm3 (0.0-0.8) 10/14/16 03:05 Eos # 0.3 K/mm3 (0.0-0.4) 10/14/16 03:05 Baso # 0.1 K/mm3 (0.0-0.1) 10/14/16 03:05 Seg Neutrophils % 61.3 % (40.0-70.0) 10/14/16 03:05 Seg Neutrophils # 5.2 K/mm3 (1.8-7.7) 10/14/16 03:05 Sodium 137 mmol/L (137-145) 10/14/16 03:05 Potassium 4.3 mmol/L (3.6-5.0) 10/14/16 03:05 Chloride 96.0 mmol/L (98-107) L 10/14/16 03:05 Carbon Dioxide 26 mmol/L (22-30) 10/14/16 03:05 Anion Gap 19 mmol/L 10/14/16 03:05 BUN 20 mg/dL (9-20) 10/14/16 03:05 Creatinine 1.1 mg/dL (0.8-1.5) 10/14/16 03:05 Estimated GFR > 60 ml/min 10/14/16 03:05 BUN/Creatinine Ratio 18.18 % 10/14/16 03:05 Glucose 163 mg/dL (75-100) H 10/14/16 03:05 POC Glucose 170 (70-105) H 10/15/16 07:51 Calcium 9.0 mg/dL (8.4-10.2) 10/14/16 03:05 Total Bilirubin 0.6 mg/dL (0.1-1.2) 10/14/16 03:05 AST 23 units/L (5-40) 10/14/16 03:05 ALT 25 units/L (7-56) 10/14/16 03:05 Alkaline Phosphatase 106 units/L (35-129) 10/14/16 03:05 Troponin T 0.034 ng/mL (0.00-0.029) H D 10/13/16 08:57 NT-Pro-B Natriuret Pep 4440 pg/mL (0-900) H 10/13/16 04:17 Total Protein 6.6 g/dL (6.3-8.2) 10/14/16 03:05 Albumin 3.3 g/dL (3.9-5) L 10/14/16 03:05 Albumin/Globulin Ratio 1.0 % 10/14/16 03:05 Triglycerides 214 mg/dL (2-149) H 10/13/16 08:57 Cholesterol 195 mg/dL (50-199) 10/13/16 08:57 LDL Cholesterol Direct 115 mg/dL (50-130) 10/13/16 08:57 HDL Cholesterol 38 mg/dL (40-59) L 10/13/16 08:57 Cholesterol/HDL Ratio 5.13 % 10/13/16 08:57 Digoxin 0.9 ng/mL (0.9-2.0) 10/13/16 07:05
[2016-10-15] MEDS: LANOXIN PO SCH (11:03)
[2016-10-15] MEDS: BABY ASPIRIN PO SCH (11:03)
[2016-10-15] MEDS: COREG PO SCH ×2 (11:04→21:07)
[2016-10-15] MEDS: ZESTRIL PO SCH (11:04)
--- NOTE | 2016-10-15 11:46 | Progress Note ---
Assessment and Plan Acute/chronic systolic heart failure normal LV function in 2009, tte yesterday reveals ef 20-25% continue IV lasix continue coreg, lisinopril Elevated troponin-->may be due to decompensated heart failure no chest pain no EKG changes consider stress test when SOB improved Hypertension Diabetes Hyperlipidemia continue statin [place] sunday check am bmp risks, benefits, alternatives d/w pt and at length they'd like to proceed Subjective Date of service: 10/15/16 Interval history: sob improved no cp Objective Vital Signs Temp Pulse Pulse Resp BP BP Pulse Ox 10/15/16 07:52 98.0 F 82 18 106/71 98 10/15/16 04:56 98.2 F 78 18 110/68 94 10/15/16 03:02 90 10/15/16 00:34 97.6 F 84 18 121/74 97 10/14/16 22:13 90 118/78 10/14/16 20:15 98.9 F 90 18 118/78 99 10/14/16 16:07 98.3 F 87 18 115/72 98 - Physical Examination HEENT: Positive: PERRL, Normocephaly, Mucus Membranes Moist Neck: Positive: neck supple, trachea midline Neuro: Positive: Grossly Intact Abdomen: Positive: Soft, Active Bowel Sounds. Negative: Tender Skin: Positive: Clear. Negative: Rash Extremities: Present: edema (trace-bilateral lower legs) - Imaging and Cardiology EKG: image reviewed Echo: pending - EKG Sinus rhythms and dysrhythmias: sinus tachycardia
[2016-10-15 12:44] LABS: BUN/Creatinine Ratio 16.42; Calcium 9.5 mg/dL (8.4-10.2); Chloride 91.3 mmol/L (98-107)
[2016-10-15] MEDS ORDERED: TYLENOL PO PRN ×2 (20:38→20:48)
[2016-10-15] MEDS ORDERED: LOVENOX SUB-Q SCH (22:00)
[2016-10-16] MEDS: LASIX IV SCH (05:12)
[2016-10-16 06:19] LABS: INR 1.14 (0.87-1.13)
[2016-10-16 06:20] LABS: Partial Thromboplastin Time 31.1 Sec. (24.2-36.6)
[2016-10-16] MEDS ORDERED: ECOTRIN PO ONE ×2 (08:20→08:21)
--- NOTE | 2016-10-16 08:26 | Progress Note ---
Assessment and Plan Acute on chronic systolic heart failure clinically improving normal LV function in 2009, tte 10/14 reveals EF 20-25%, mild-mod MR continue IV lasix, coreg, lisinopril d/c digoxin Elevated troponin-->may be due to decompensated heart failure no chest pain no EKG changes LHC today: normal coronaries Non-ischemic cardiomyopathy EF 20-25% Hypertension Diabetes Hyperlipidemia continue statin Left heart cath today revealed normal coronaries. Patient may be discharged home this afternoon from a cardiac standpoint Follow up appointment with Dr. Fonseca in the [place] office on October 25 at 9:45am. The patient has been seen in conjunction with Dr. Carroll who agrees with the assessment and plan of care. Subjective Date of service: 10/16/16 Principal diagnosis: acute on chronic systolic heart failure Interval history: The patient is resting in bed. No new complaints. Feels much better today. Awaiting left heart cath this morning. Objective Last Vital Signs Temp 97.7 F 10/16/16 07:45 Pulse 95 H 10/16/16 07:45 Resp 17 10/16/16 07:45 BP 120/71 10/16/16 07:45 Pulse Ox 98 10/16/16 07:45 - Physical Examination General: No Apparent Distress HEENT: Positive: PERRL, Normocephaly, Mucus Membranes Moist Neck: Positive: neck supple, trachea midline Cardiac: Positive: Reg Rate and Rhythm, S1/S2 Lungs: Positive: clear to auscultation Neuro: Positive: Grossly Intact Abdomen: Positive: Soft, Active Bowel Sounds. Negative: Tender Skin: Positive: Clear. Negative: Rash Extremities: Absent: edema - Labs and Meds Coagulation 10/16/16 Range/Units 05:22 PT 14.5 (12.2-14.9) Sec. INR 1.14 H (0.87-1.13) APTT 31.1 (24.2-36.6) Sec. Comprehensive Metabolic Panel 10/15/16 Range/Units 11:58 Sodium 135 L (137-145) mmol/L Potassium 4.0 (3.6-5.0) mmol/L Chloride 91.3 L (98-107) mmol/L Carbon Dioxide 29 (22-30) mmol/L BUN 23 H (9-20) mg/dL Creatinine 1.4 (0.8-1.5) mg/dL Glucose 184 H (75-100) mg/dL Calcium 9.5 (8.4-10.2) mg/dL - Imaging and Cardiology EKG: image reviewed Echo: report reviewed (09/2016: EF 20-25%, mild-mod MR) - Telemetry EKG Rhythm: Sinus Rhythm - EKG Sinus rhythms and dysrhythmias: sinus tachycardia
[2016-10-16] MEDS ORDERED: NACL 0.9% 500 ML 500 ML ONE (08:34)
[2016-10-16] MEDS: CALAN ONE ×2 (08:46→09:06)
[2016-10-16] MEDS: XYLOCAINE 2% INFILTRATI ONE ×3 (08:47→09:06)
[2016-10-16] MEDS: VERSED ONE ×2 (08:47→09:02)
[2016-10-16] MEDS: HEPARIN 10,000 UNITS/10 ML ONE ×2 (08:48→09:06)
[2016-10-16] MEDS: SUBLIMAZE ONE ×2 (08:48→09:02)
[2016-10-16] MEDS: NITROGLYCERIN SYRINGE 3 ML ONE ×2 (08:50→09:06)
[2016-10-16] MEDS: HEPARIN/NS 5000 UNIT/500ML(CATH LAB) 1,000 ML IR ONE ×2 (08:50→09:06)
--- NOTE | 2016-10-16 10:01 | Cardiac Catherization Report ---
INDICATION FOR PROCEDURE: The patient is a pleasant 50-year-old gentleman with a history of past cocaine abuse presents with shortness of breath, heart failure, and ejection fraction of 20%. He is referred for left heart catheterization to elucidate the etiology of his cardiomyopathy. Risks, benefits, and alternatives were discussed at length prior to obtaining informed consent. PROCEDURE IN DETAIL: The patient was brought to the label cutter in a postabsorptive state. Prepped and draped in sterile fashion. Esdras's test in right hand was normal. A 2 mL of 2% lidocaine anesthetized to the right wrist. A standard 6-Portuguese hydrophilic sheath used to cannulate the right radial artery via modified Seldinger technique. All exchanges performed to exchange a J-tip guidewire. JL3.5 catheter used to engage left main. No dampening or ventricularization. Cineangiography performed in all projections. JR4 catheter used to cross the aortic valve under fluoroscopic guidance. Left ventriculography performed in 30 [place]ESS[place] and 30 INDI[place] projections via hand injections, catheter flushed. Manual pullback performed with continuous pressure monitoring. Catheter used to engage the right coronary. No dampening or ventricularization. Cineangiography performed in all projections. Next, catheter removed from the body of wire and sheath removed. Manual pressure used to achieve hemostasis. DATA: Aortic pressure is 110/60, LV pressure is 110, and LVP of 16 to 18 mmHg. Left ventriculography reveals severe global left ventricular hypokinesis with estimated ejection fraction of 20-25%. Moderately dilated left ventricular chamber size. The patient remained in normal sinus rhythm throughout the procedure. A total of 40 mL of Isovue was used. CORONARY ANATOMY: This is a right dominant system. Right coronary is a moderate sized vessel, courses AV groove, distally bifurcates in the posterior descending and posterolateral branch. No significant stenosis noted. Left main was without significant disease, bifurcates into the left anterior descending and left circumflex. Left circumflex is a moderate sized vessel, courses AV groove ___ OM trunk. No significant disease. LAD is a moderate sized vessel, courses anterior intergroove, wraps around the apex. No significant disease in the LAD or left main. CONCLUSIONS: 1. No angiographic evidence of significant epicardial coronary disease in this right dominant system. 2. Severe globally dilated and hypokinetic left ventricle with estimated ejection fraction of 20-25%. 3. No evidence of aortic stenosis. 4. Normal LVEDP. 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 Continue aggressive medical management. Risk factor modification, DAMARIS inhibition, beta blockade, Aldactone, stable cardiac status. [facility]# [id number] SBM/NTS
[2016-10-16] MEDS: ZESTRIL PO SCH (11:36)
[2016-10-16] MEDS: COREG PO SCH (11:38)
[2016-10-16] MEDS: BABY ASPIRIN PO SCH (11:39)
[2016-10-16] MEDS: NOVOLOG SUB-Q SCH (11:40)
--- NOTE | 2016-10-16 15:20 | Discharge Summary ---
Providers - Providers Date of Admission: 10/13/16 07:07 Date of discharge: 10/16/16 Attending physician: KATE MYERS 10/13/16 08:49 Consult to Physician [CONS] Routine Consulting Provider: ARNEL CRESPO Reason For Exam: CHF Place consult to:: [facility] Notified:: Y Was contact made?: Yes If yes, spoke with:: Dr Fonseca Primary care physician: OXIDATION OPERATOR Hospitalization Condition: Fair Hospital course: Discharge Diagnosis: Acute on chronic systolic heart failure * continue IV lasix, continue coreg, lisinopril, digoxin * had normal LV function in 2009, stress test on 2011 showed Ef of 47% * 2d echo yesterday reveals EF of 20-25% * cardiac cath showed normal coronaries Elevated troponin * may be due to decompensated heart failure * Pt has no chest pain, no EKG changes Hypertension * continue coreg, lisinopril, lasix Diabetes type 2 * Cont metformin and glipizide, ADA diet Hyperlipidemia * continue statin Remote h/o cocaine abuse Tobacco abuse, counselled Disposition: DISCHARGED TO HOME OR SELFCARE Time spent for discharge: 34 minutes Core Measure Documentation - Palliative Care Palliative Care/ Comfort Measures: Not Applicable - Core Measures Any of the following diagnoses?: none Exam - Physical Exam Narrative exam: GENERAL: well-developed and well-nourished white male lying on bed appeared to be in no discomfort. HEENT: Normocephalic. Atraumatic. No conjunctival congestion or icterus. Patient has moist mucous membranes. NECK: Supple. Trachea midline. CHEST/LUNGS: Clear to auscultated bilaterally, breathing nonlabored. No wheezes crackles or rhonchi. HEART/CARDIOVASCULAR: Regular in rate and rhythm. S1 and S2 positive. ABDOMEN: Abdomen is soft, nontender. Patient has normal bowel sounds. SKIN: There is no rash. Warm and dry. NEURO: No focal motor deficit. Follows command. MUSCULOSKELETAL: No joint effusion or tenderness. EXTRIMITY: No edema, no cyanosis or clubbing. PSYCH: Cooperative. - Constitutional Vitals: Temp Pulse Resp BP Pulse Ox 97.7 F 95 H 17 115/78 98 10/16/16 07:45 10/16/16 07:45 10/16/16 07:45 10/16/16 11:38 10/16/16 07:45 Plan Activity: advance as tolerated Weight Bearing Status: Non-Weight Bearing Diet: low cholesterol, low salt, diabetic Follow up with: PRIMARY CARE,MD [Primary Care Provider] - 3-5 Days Prescriptions: Aspirin [Aspirin BABY CHEW TAB] 81 mg PO DAILY #30 tab.chew AtorvaSTATin [Lipitor] 80 mg PO DAILY #30 tablet Carvedilol [Coreg] 12.5 mg PO BID #60 tablet glipiZIDE [Glucotrol] 5 mg PO BID #60 tablet metFORMIN [Glucophage] 850 mg PO BID #60 tablet
[2016-10-16 16:13] VITALS: BP 130/64
== END 2016-10-16 17:30 | disposition home or self-care (01) | DRG 286 ==
LOC: ED 03:58 → 4A 07:07
PROVIDERS: ADMIT Internal Medicine; ATTEND Internal Medicine
PROC: 4A023N7 Measurement of Cardiac Sampling and Pressure, Left Heart, Percutaneous Approach (ICD-10-PCS; principal; 2016-10-16)
PROC: B2151ZZ Fluoroscopy of Left Heart using Low Osmolar Contrast (ICD-10-PCS; 2016-10-16)
DX: I25.10 Atherosclerotic heart disease of native coronary artery without angina pectoris (principal); I50.23 Acute on chronic systolic (congestive) heart failure; I11.0 Hypertensive heart disease with heart failure; I25.2 Old myocardial infarction; E11.9 Type 2 diabetes mellitus without complications; E78.5 Hyperlipidemia, unspecified; I42.9 Cardiomyopathy, unspecified; Z71.6 Tobacco abuse counseling; Z87.891 Personal history of nicotine dependence; Z79.4 Long term (current) use of insulin; Z88.8 Allergy status to other drugs, medicaments and biological substances; Z79.82 Long term (current) use of aspirin
CPT/HCPCS: 36415; 71020; 80048; 80053; 80061; 80162; 82962; 83036; 83880; 84484; 85025; 85610; 85730; 93005; 93010; 93306; 93458; 96374; A9270-GY; C1894; J1644; J1650; J1815; J1940; J2250; J2405; J3010; J7040; Q9967

== ENCOUNTER 2017-01-21 18:36 | Emergency (ER) | payer MEDICARE ==
[~2017-01-21 18:36] MED LIST: ADRENALIN ONE; SODIUM BICARBONATE IV ONE
--- NOTE | 2017-01-21 19:08 | Emergency Department Report ---
ED CPR HPI - General Chief Complaint: Cardiac Arrest/CPR Stated Complaint: CARDIAC ARREST Time Seen by Provider: 01/21/17 19:01 Source: EMS Mode of arrival: Stretcher Limitations: Other - History of Present Illness Initial Comments: This is a 51-year-old male who presents to the emergency department by EMS from home in cardiac arrest. The patient was seen by his looking as if he was going unconscious and then he turned to her saying he was having trouble breathing, eyes rolled in the back of his head, and then he went unconscious. EMS was called at 5:38 PM and they say they got there shortly afterwards. The patient was placed on a monitor and was found to be in V. tach. They started chest compressions and gave him epinephrine and he received a 200 J defibrillation, followed by a 300 J defibrillation. He then went into asystole. He received a total of 3 rounds of epinephrine and constant chest compressions. They were unable to intubate secondary to what they say is an anterior airway. He was receiving bag valve ventilation. He arrived to [facility] emergency Department and was still pulseless, placed on a monitor and was still in asystole. He was transferred to [facility] where chest compressions continued and ACLS protocol continued and was supervised by myself. - Related Data Home Medications Medication Instructions Recorded Confirmed Last Taken Lisinopril [Zestril TAB] 20 mg PO DAILY 10/13/16 10/13/16 Unknown Previous Rx's Medication Instructions Recorded Last Taken Type Aspirin [Aspirin BABY CHEW TAB] 81 mg PO DAILY #30 tab.chew 10/16/16 Unknown Rx AtorvaSTATin [Lipitor] 80 mg PO DAILY #30 tablet 10/16/16 Unknown Rx Carvedilol [Coreg] 12.5 mg PO BID #60 tablet 10/16/16 Unknown Rx glipiZIDE [Glucotrol] 5 mg PO BID #60 tablet 10/16/16 Unknown Rx metFORMIN [Glucophage] 850 mg PO BID #60 tablet 10/16/16 Unknown Rx Furosemide [Lasix TAB] 20 mg PO BID #60 tablet 10/23/16 Unknown Rx Potassium Chloride [K-Dur] 20 meq PO BID #60 tab 10/23/16 Unknown Rx Allergies Allergy/AdvReac Type Severity Reaction Status Date / Time Sulfa (Sulfonamide Allergy Unknown Verified 01/21/15 07:37 Antibiotics) ED Review of Systems ROS: Stated complaint: CARDIAC ARREST Other details as noted in HPI Comment: Unobtainable due to pts medical conditions ED Past Medical Hx - Past Medical History Hx Heart Attack/AMI: Yes (2002) Hx Congestive Heart Failure: Yes Hx Diabetes: Yes Hx Kidney Stones: Yes Hx Asthma: No Hx COPD: No Hx HIV: No Additional medical history: on transplant list, cardiomyopathy, neuropathy - Surgical History Additional Surgical History: left ankle surgery, left shoulder surgery, urinary stent, lithotripsy, left hand surgery, - Social History Smoking Status: Current Some Day Smoker - Medications Home Medications: Home Medications Medication Instructions Recorded Confirmed Last Taken Type Lisinopril [Zestril TAB] 20 mg PO DAILY 10/13/16 10/13/16 Unknown History Aspirin [Aspirin BABY CHEW TAB] 81 mg PO DAILY #30 tab.chew 10/16/16 Unknown Rx AtorvaSTATin [Lipitor] 80 mg PO DAILY #30 tablet 10/16/16 Unknown Rx Carvedilol [Coreg] 12.5 mg PO BID #60 tablet 10/16/16 Unknown Rx glipiZIDE [Glucotrol] 5 mg PO BID #60 tablet 10/16/16 Unknown Rx metFORMIN [Glucophage] 850 mg PO BID #60 tablet 10/16/16 Unknown Rx Furosemide [Lasix TAB] 20 mg PO BID #60 tablet 10/23/16 Unknown Rx Potassium Chloride [K-Dur] 20 meq PO BID #60 tab 10/23/16 Unknown Rx ED Physical Exam - General Limitations: Other - Other Other exam information: GENERAL: Patient is ill-appearing and unresponsive. HEENT: Normocephalic. Pupils are fixed and dilated. NECK: Supple. Trachea is midline. CHEST/LUNGS: There are no spontaneous lung sounds. HEART/CARDIOVASCULAR: No spontaneous heart sounds. ABDOMEN: Abdomen is soft. Obese habitus. SKIN: Skin is cool but dry. NEURO: Patient is unresponsive to verbal, tactile or painful stimuli and does not follow any commands. MUSCULOSKELETAL: There is no deformity. No spontaneous movement of the extremities. There was no palpable pulse to the radial or femoral regions. - Intubation Time Out Performed: No Sedative: none Laryngoscope: fiberoptic video scope Size: 4 ET Tube Size: 7.5 Tube Secured Depth (cm): 24 Tube Secured Location: lips Tube Placement Confirmation: visualized tube passing t, equal breath sounds bilat, no breath sounds over epi Intubation Complications: none ED Medical Decision Making - Medical Decision Making 51-year-old male presents the emergency department in cardiac arrest. He had received 2 defibrillations, 3 rounds of epinephrine and continuous chest compressions since EMS got to him around 5:40 PM. He was still pulseless in asystole when he arrived to [facility] but this was about 45 minutes into the patient being pulseless. The patient had not been intubated prior to arrival so I intubated the patient with a glydescope without any obvious complications. There were some gastric secretions seen in the posterior pharynx that were suctioned. Once the patient was intubated I continued supervising ACLS protocol. In the emergency department the patient had continuous chest compressions, 3 rounds of epinephrine and each time a pulse and rhythm check was done the patient was pulseless and in asystole. When it was time for the fourth epinephrine, the patient was still asystolic and pulseless and the ultrasound was placed over the heart and there was no cardiac movement whatsoever. At this point the patient had been pulseless for over 1 hour. Time of was called. I spoke with the patient's family including his son and and let them know of the patient's expiration and they were later given the opportunity to see the patient in the emergency department to say goodbye. - Differential Diagnosis cardiac arrest Critical Care Time: No Critical care time in (mins) excluding proc time.: 15 Critical care attestation.: If time is entered above; I have spent that time in minutes in the direct care of this critically ill patient, excluding procedure time. Critical care time was spent on this patient and doing his initial evaluation, supervision of ACLS protocol, calling time of , and prolonged discussion/ visitation with the patient's family. This does not include time spent for intubation. Critical Care Time: 15 minutes ED Disposition Clinical Impression: Cardiac arrest Disposition: Is pt being admited?: No Referrals: PRIMARY CARE, [Primary Care Provider] - 3-5 Days Time of Disposition: 19:59
[2017-01-21] MEDS ORDERED: SODIUM BICARBONATE IV ONE (21:05)
[2017-01-21] MEDS ORDERED: ADRENALIN ONE (21:05)
== END 2017-01-21 21:15 ==
LOC: ED 18:36
DX: I46.9 Cardiac arrest, cause unspecified (principal); I25.2 Old myocardial infarction; I50.9 Heart failure, unspecified; E11.9 Type 2 diabetes mellitus without complications; F17.200 Nicotine dependence, unspecified, uncomplicated; I42.9 Cardiomyopathy, unspecified; G62.9 Polyneuropathy, unspecified; Z88.2 Allergy status to sulfonamides
CPT/HCPCS: 31500; 92950; 99285; J0171